=== PATIENT | male | born 1930 | race Caucasian/White ===

== ENCOUNTER → 2017-05-01 | Outpatient (CLI) | payer MEDICARE ==
--- NOTE | ~2017-05-01 | CR181 ---
[facility] A Service of [facility] & [facility] RADIOLOGY TEXT RESULTS PATIENT: MARLENI ORTEGA LOCATION: [facility] : 32 UNIT #: [id number] AGE: [address]: Zi Miller MD SEX: M ORDER DR: [id number] [facility] [address] [place], [place] [address] [id number] O MR#: [id number] Acc #: [id number] NAME: MARLENI ORTEGA : 1930 SEX: M STUDY DATE/TIME: 05/01/2017 10:23 UNIT: [facility] ROOM: STUDY DESCRIPTION: CR Lumbar Spine 2 or 3 Views Attending Physician: Zi Miller M.D. Referring Physician: Zi Miller M.D. Ordering Physician: Zi Miller M.D. Primary Care Physician: Zi Miller M.D. MEDICAL IMAGING REPORT This report is preliminary unless electronic signature is present EXAM Three views lumbar spine. DATE 05/01/2017 HISTORY 86-year-old male with complaints of low back pain with radiculopathy. Patient states pain radiates down right hip, symptoms present for 1 month after moving heavy furniture. COMPARISON None FINDINGS There is non concavity of the anterior-superior L4 endplate which is thought most likely to be chronic. Osteopenic changes are present which can limit sensitivity for detection of subtle, nondisplaced fracture. Disc space height appears preserved at each lumbar level. There is suspected mild facet arthropathy bilaterally at L3-4, L4-5, and L5-S1. Anterior osteophyte formation with endplate sclerosis is present at T10-11 and T11-12. Calcific atherosclerotic changes are demonstrated within the abdominal aorta. No sacroiliac joint diastasis. IMPRESSION 1. There is mild concavity of the anterior superior L4 endplate. This is favored to represent a chronic finding but there are no prior imaging studies at this institution. 2. Mild facet arthropathy at L3-4 through L5-S1. 3. Anterior osteophyte formation predominates at T10-11 through T11-12. STS. [facility] A Service of [facility] & [facility] RADIOLOGY TEXT RESULTS PATIENT: MARLENI ORTEGA LOCATION: [facility] : 31 UNIT #: [id number] AGE: [address]: Zi Miller MD SEX: M ORDER DR: 4. Osteopenia. 5. Aortic calcific atherosclerosis. Dictated by... Jacqui Falcon M.D. THIS IS AN ELECTRONICALLY VERIFIED REPORT Jacqui Falcon M.D. at 05/02/2017 8:46 AM PRINCESS/ruben TD: 05/01/2017 12:56 JOB #: [id number] MEDICAL IMAGING REPORT Page 1 of 1 COPY
--- NOTE | ~2017-05-01 | CR151 ---
[facility] A Service of [facility] & [facility] RADIOLOGY TEXT RESULTS PATIENT: MARLENI ORTEGA LOCATION: [facility] : 31 UNIT #: [id number] AGE: [address]: Zi Miller MD SEX: M ORDER DR: [id number] [facility] [address] [place], [place] [address] [id number] O MR#: [id number] Acc #: [id number] NAME: MARLENI ORTEGA : 1930 SEX: M STUDY DATE/TIME: 05/01/2017 10:23 UNIT: [facility] ROOM: STUDY DESCRIPTION: CR Hip Min 2 Views Rt Attending Physician: Zi Miller M.D. Referring Physician: Zi Miller M.D. Ordering Physician: Zi Miller M.D. Primary Care Physician: Zi Miller M.D. MEDICAL IMAGING REPORT This report is preliminary unless electronic signature is present EXAM AP pelvis with frog view of the right hip (2 images) 05/01/2017 HISTORY Low back pain with radiculopathy. Patient states back pain radiates down to right hip for 1 month after moving heavy furniture. COMPARISON None. FINDINGS No pelvic fracture, hip fracture or hip dislocation is seen. There is [id number] bilateral hip joint space narrowing. There is articular sclerosis along the superior articular surface of the right acetabulum. No sacroiliac joint or pubic symphysis diastasis is seen. IMPRESSION 1. Knya-uy-hjzwpedy bilateral hip joint space narrowing with right acetabular spurring superiorly. 2. No acute abnormality of the pelvis or right hip. Dictated by... Jacqui Falcon M.D. THIS IS AN ELECTRONICALLY VERIFIED REPORT Jacqui Falcon M.D. at 05/02/2017 8:46 AM PRINCESS/selena TD: 05/01/2017 13:01 JOB #: [id number] [facility] A Service of [facility] & [facility] RADIOLOGY TEXT RESULTS PATIENT: MARLENI ORTEGA LOCATION: [facility] #: [id number] : 32 UNIT #: [id number] AGE: [address]: Zi Miller MD SEX: M ORDER DR: MEDICAL IMAGING REPORT Page 1 of 1 COPY
== END | disposition home or self-care (01) ==
LOC: CRAD 10:14
DX: M54.16 Radiculopathy, lumbar region (principal); M46.96 Unspecified inflammatory spondylopathy, lumbar region; M46.97 Unspecified inflammatory spondylopathy, lumbosacral region; I70.0 Atherosclerosis of aorta; M25.852 Other specified joint disorders, left hip; M25.851 Other specified joint disorders, right hip
CPT/HCPCS: 72100; 73502

== ENCOUNTER → 2017-07-10 | Outpatient (CLI) | payer MEDICARE | END | disposition home or self-care (01) | LOC: CSSDAY 07:45 | DX: M85.80 Other specified disorders of bone density and structure, unspecified site (principal) | CPT/HCPCS: 36415; 82310; 96372; J0897 ==